=== PATIENT | male | born 1970 | race African-American/Black ===

== ENCOUNTER 2022-07-02 21:40 | Emergency (ER) | payer OTHER, BC ==
[2022-07-02] MEDS ORDERED: IBUPROFEN 600 MG TABLET (FP) PO ONE ×2 (21:57→22:11)
[2022-07-02 22:08] VITALS: BP 127/77; PULSE 78; RESP 16; TEMP 98.5; BMI 26.6
== END 2022-07-02 22:12 | disposition home or self-care (01) ==
LOC: FER 21:40
DX: M54.50 Low back pain, unspecified (principal); V49.40XA Driver injured in collision with unspecified motor vehicles in traffic accident, initial encounter
CPT/HCPCS: 99283-25